=== PATIENT | male | born 1935 | race Caucasian/White ===

== ENCOUNTER 2016-05-16 16:22 | Inpatient (IN) | payer MEDICARE, BC ==
[2016-05-16] MEDS ORDERED: NS 1,000 ML IV ONE (17:06)
--- NOTE | 2016-05-16 17:26 | DIRPT ---
CLINICAL DATA: Slurred speech with hand numbness and leg weakness. EXAM: PORTABLE CHEST 1 VIEW COMPARISON: 04/06/2016 and 03/29/2016 and 12/02/2014 FINDINGS: Severe emphysema with marked lucency in the upper lungs. Coarse lung markings in the lower lungs appear chronic. No significant airspace disease. Heart and mediastinum are within normal limits and stable. Probable nipple shadow in the left lower chest. No acute bone abnormality. IMPRESSION: Severe emphysema without acute findings. Electronically Signed By: Dung Moore M.D. On: 05/16/2016 17:23
--- NOTE | 2016-05-16 17:38 | EDPRACDOC ---
- General Information Chief Complaint: Generalized Weakness Stated Complaint: WEAKNESS Time Seen by Provider: 05/16/16 17:01 Information Source: Patient, Family Mode Of Arrival: Car Home Medications: Home Medications Clopidogrel Bisulfate [Plavix] 75 mg PO DAILY 11/02/14 Ferrous Sulfate [Feosol] 325 mg PO BID 11/02/14 Gabapentin [Neurontin] 200 mg PO HS 11/02/14 Propranolol HCl [Propranolol HCl ER] 80 mg PO MOFR 11/02/14 Tiotropium [place] [Spiriva] 1 puff INH DAILY 11/02/14 Aspirin (OrangeEnteric Coated) [Ecotrin] 325 mg PO DAILY 11/26/14 Allergies/Adverse Reactions: Allergies Allergy/AdvReac Type Severity Reaction Status Date / Time loratadine [From Claritin] Allergy Unknown Verified 05/16/16 16:50 - History of Present Illness Onset: 2 DAYS Exact Onset of Symptoms: Unknown HPI: PT HAS BEEN C/O OF NUMBNESS TO BOTH HANDS AND WEAKNESS TO LEGS FOR THE PAST 2 DAYS. PT ALSO C/O DIARRHEA ALL DAY AND NIGHT YESTERDAY. PT'S DAUGHTER FEELS HIS SPEECH IS SLURRED. Symptoms Started: Reports: Gradually Symptoms Description: Constant Weakness: Bilateral: Generalized Symptoms: Reports: Numbness, Weak Associated signs and symptoms:: Reports: Diarrhea ED Past Medical History - Patient Medical History Neurological History: Reports: Cerebrovascular Accident Cardiac History: Reports: Coronary Artery Disease, Atrial Fibrillation, Heart Attack, Cardiac Catheterization Respiratory History: Reports: COPD Systemic History: Reports: Cancer (esophageal-resection 2005) Surgical History: Reports: Cardiac Catheterization, Other (ESOPHAGEAL RESECTION) - Social Medical History Smoking Status: Heavy tobacco smoker (5 or more cigarettes/day or daily pipe/ cigar) ETOH: None Substance Abuse: None Lives In: Home EDM Review of Systems - Review of Systems ROS Negative Except as Marked: Yes All systems reviewed and were negative except as marked Constitutional: Weakness Gastrointestinal: Diarrhea Neurological: Numbness, Speech Difficulty, Weakness - Physical Exam Constitutional: No apparent distress, Alert (Awake), Other (UNDERNOURISHED) Oriented to: Time, Person, Place Last recorded Vital Signs: Last Vital Signs Temp Pulse 60 05/16/16 16:43 Resp 22 05/16/16 16:43 BP 137/71 05/16/16 16:43 Pulse Ox Oxygen Pulse Oxygen Saturation O2 Device Oxygen Flow Rate Fraction of Inspired Oxygen ( FIO2) - HEENT Head: Normal ( normocephalic) Eye Exam: Normal (PERRL, EOMI, Sclera white) Oropharynx: Membranes Dry ENT EAC: Normal TMJ: Normal Nose: No Symptoms Reported (septum midline) Neck: Normal (FROM, trachea at midline) - Respiratory/Cardiovascular Respiratory: Normal - CTA (BBS clear to auscultation without adventitious sounds ) Cardiovascular: Normal (RRR without murmur, gallop or rub) - GI Auscultation: Normal (NABS) Palpation: Normal (Soft,No rebound or guarding, non distended) Tenderness: Non tender Trimble's Sign: Negative - Musculoskeletal Back: Normal (Non-Tender) Extremities: Normal (Normal tone, Pulses 2+ No cyanosis or edema, FROM) - Integumentary Skin: Normal, Warm, Dry Lymphatics: Normal (no adenopathy) - Neurologic Memory Impaired: Normal Motor Function: Normal (Normal tone, Pulses 2+ No cyanosis or edema, FROM) Cranial Nerve: Normal (CN II-X11 intact sensation, strength 5/5) Cerebellar: Normal Mood Description: Normal Perception: Normal - Re-evaluation Re-evaluation 1 Re-evaluation Time: 20:11 (IMPROVED) - Results 05/16/16 18:00 05/16/16 19:10 - EKG EKG #1 EKG Time: 17:18 -: Yes EKG interpreted by me Rate: bpm: 85 [place]: Normal Rhythm: NSR Block: RBBB Hypertrophy: None ST: Normal Comparison: 11/26/14 - Diagnostic Imaging Head Image interpreted by: Radiologist No acute intracranial abnormality. Old ischemic changes. Stable right cerebellopontine angle meningioma. Chest Image interpreted by: Radiologist Severe emphysema without acute findings. - Departure Yes I personally saw and evaluated the patient. Disposition: Admit IP To This Hospital Condition: Fair Final Diagnosis: Hyperkalemia, Nausea and vomiting Education/Counseling Given To: Patient Education/Counseling Given Regarding: Diagnosis, Treatment Decision to Admit Time: 20:12 Decision to admit date: 05/16/16 Decision to admit: from ED - Physician Consulted Hospitalist Provider Called: Alice Escobedo
--- NOTE | 2016-05-16 17:57 | DIRPT ---
CLINICAL DATA: 80-year-old with slurred speech and numbness in both hands. EXAM: CT HEAD WITHOUT CONTRAST TECHNIQUE: Contiguous axial images were obtained from the base of the skull through the vertex without contrast. COMPARISON: Brain MRI 10/24/2011 FINDINGS: Again noted is a small lesion at the right cerebellopontine angle. This structure measures 1.3 x 0.5 cm with peripheral calcifications. This has minimally changed from the prior MRI and compatible with a small meningioma. Stable encephalomalacia along the left white matter tracts and armstrong radiata compatible with prior infarct. Mild cerebral atrophy. Evidence for old lacune disease in the basal ganglia regions bilaterally. No evidence for acute hemorrhage, mass lesion, midline shift, hydrocephalus or new large infarct. Mild mucosal disease in the ethmoid air cells. No calvarial fracture. IMPRESSION: No acute intracranial abnormality. Old ischemic changes. Stable right cerebellopontine angle meningioma. Electronically Signed By: Dung Moore M.D. On: 05/16/2016 17:54
[2016-05-16 18:09] LABS: AUTOMATED EOSINOPHIL 3.1 % (0-5); AUTOMATED LYMPH 14.2 % (17-44); AUTOMATED MONOCYTE 3.4 % (3-10); AUTOMATED NEUTROPHIL 78.3 % (45-76); MPV 10.1 fL (7.4-10.4)
[2016-05-16 18:19] LABS: BLOOD UREA NITROGEN 30 MG/DL (9-20); CALCIUM 9.9 MG/DL (8.4-10.2); CALCULATED OSMOLALITY 273 MOs/Kg (270-290); CHLORIDE 111 mEq/L (98-107); GLUCOSE 69 MG/DL (70-99); SODIUM LEVEL 140 mEq/L (137-146); TOTAL PROTEIN 9.1 G/DL (6.3-8.2)
[2016-05-16 18:29] LABS: PARTIAL THROMB. TIME 32.2 SEC (22-35); PT-INR 1.1
[2016-05-16 19:52] LABS: LEUKOCYTES/URINE NEG (NEGATIVE); NITRITE/URINE NEG (NEGATIVE); URINE OCCULT BLOOD 1+ (NEG/TRACE); WBC/URINE 0-2 (0-2)
[2016-05-16] MEDS ORDERED: SODIUM POLYSTYRENE SULFONATE 15 GM BOTTLE PO ONE (20:07)
[2016-05-16] MEDS ORDERED: DEXTROSE 25 GM/50 ML PFS IV ONE (20:07)
[2016-05-16] MEDS ORDERED: SODIUM CHLORIDE 0.9% 3 ML FLUSH FLUSH PRN (20:26)
[2016-05-16] MEDS ORDERED: BENZONATATE 100 MG PERLES PO PRN (20:26)
[2016-05-16] MEDS ORDERED: PROMETHAZINE 25 MG/ML VIAL IV PRN (20:26)
[2016-05-16] MEDS ORDERED: TUSSIONEX 5 ML ORAL SYRINGE PO PRN (20:26)
[2016-05-16] MEDS ORDERED: REGULAR INSULIN 100 UNITS/ML - 3 ML VIAL IV ONE (20:30)
--- NOTE | 2016-05-16 20:36 | HISTPHYS ---
- Chief Complaint Weakness and slurred speech - History of Present Illness PT HAS BEEN C/O OF NUMBNESS TO BOTH HANDS AND WEAKNESS TO LEGS FOR THE PAST 2 DAYS. PT ALSO C/O DIARRHEA ALL DAY AND NIGHT YESTERDAY. PT'S DAUGHTER FEELS HIS SPEECH IS SLURRED. Symptoms Started: Reports: Gradually Symptoms Description: Constant Weakness: Bilateral: Generalized Symptoms: Reports: Numbness, Weak Associated signs and symptoms:: Reports: Diarrhea 80-year-old gentleman history of esophageal cancer many years smoke for many years quit 2 years ago presents tonight complaining of weakness numbness in his hands and slurred speech. He has had multiple episodes of diarrhea as well. Evaluation in the Emergency Department revealed a potassium in the high 8 range. Confirmed. Patient lives alone in cooks for himself he eats a diet that appears to be fairly high in potassium including and okra corn and tomatoes can that he eats at least once a day a banana at least once a day and potatoes every single day. He does not appear to have any renal cause for hyperkalemia. Patient will be admitted into the hospital for further evaluation and management of symptomatic hyperkalemia. - Medical History Cardiac History: Reports: Coronary Artery Disease, Atrial Fibrillation, Heart Attack, Cardiac Catheterization Respiratory History: Reports: COPD GI/ History: Denies: Renal Disease Systemic History: Reports: Cancer (esophageal-resection 2005) Neurological History: Reports: Cerebrovascular Accident - Surgical History Reports: Cardiac Catheterization, Other (ESOPHAGEAL RESECTION) - Medictions/Allergies Allergies loratadine [From Claritin] Allergy (Verified 05/16/16 16:50) Unknown Current Medication List: Reviewed Home Medications Clopidogrel Bisulfate [Plavix] 75 mg PO DAILY 11/02/14 Ferrous Sulfate [Feosol] 325 mg PO BID 11/02/14 Gabapentin [Neurontin] 200 mg PO HS 11/02/14 Propranolol HCl [Propranolol HCl ER] 80 mg PO MOFR 11/02/14 Tiotropium [place] [Spiriva] 1 puff INH DAILY 11/02/14 Aspirin (OrangeEnteric Coated) [Ecotrin] 325 mg PO DAILY 11/26/14 - Family History Reports: No Significant History - Social History Travel Outside of [place] in the Last 3 Months?: No Lives: Alone Smoking Status: Heavy tobacco smoker (5 or more cigarettes/day or daily pipe/ cigar) Social History: Denies: Alcohol Use, Substance Use Disorder - Review of Systems Constitutional: Fatigue, Weakness Eyes: No Symptoms Reported (No blurry vision, visual changes, eye pain, or eye redness.) Ears: No Symptoms Reported (No ear pain or discharge) Nose: No Symptoms Reported (No nasal discharge/congestion or bleeding) Mouth: No Symptoms Reported (No oropharyngeal lesions or erythema) Throat/Neck: No Symptoms Reported (No throat pain or swelling.No oropharyngeal lesions or erythema.) Respiratory: No Symptoms Reported (No cough, wheezing, or shortness of breath.) Cardiovascular: No Symptoms Reported (No chest pain or palpitations.) Gastrointestinal: Diarrhea Genitourinary: No Symptoms Reported (No dysuria or hematuria.) Neurological: Numbness (Bilateral hand), Weakness (Bilateral lower extremities) Musculoskeletal:: No Symptoms Reported Integumentary: No Symptoms Reported Allergic/Immunologic: No Symptoms Reported Hematologic: No Symptoms Reported (No chronic anemia, bleeding, or easy bruising.), Other (Lymphatics- no lymph node swelling or pain.) Endocrine: No Symptoms Reported (No thyroid issues, polyuria, or polydipsia.) Psychiatric: No Symptoms Reported (Fully oriented, with normal and appropriate affect.) - Physical Exam Vital Signs: Initial Vitals Pulse Rate 60 05/16/16 16:43 Respiratory Rate 22 05/16/16 16:43 Blood Pressure 137/71 05/16/16 16:43 Constitutional: No apparent distress. negative: Well nourished, Well appearing Oriented to: Time, Person, Place Exam: Chronically ill-appearing white male in no acute respiratory distress he is thin and emaciated. - HEENT Head: Normal (normocephalic, atraumatic.), Other (No cervical lymphadenopathy. No supraclavicular lymphadenopathy. Neck: No palpable mass, supple , trachea midline.) Eye: Normal (pupils equal, reactive to light, and round; EOMI, Sclera white) Oropharynx: Normal (Pharynx: Moist without exudate,Gums-no swelling, No oropharyngeal lesions or erythema, Mucous membranes are dry.) Nose: No Symptoms Reported (septum midline, Nares patent, without discharge or bleeding.) Respiratory: Normal - CTA (Clear to auscultation bilaterally. No wheezing, rales , rhonchi. Chest wall movements are symmetric. No use of accessory muscles to breathe.) Cardiovascular: Normal (RRR , Normal S1, S2. No murmurs, rubs, or gallops. PMI non-displaced. Carotids: no carotid bruits. No bradycardia or tachycardia. DP pulses 2+ bilaterally.) - GI Auscultation: Normal (normal active sounds) Palpation: Normal (Soft,non distended,nontender. No hepatosplenomegaly.) Tenderness: Non tender (No rebound or guarding) Trimble's Sign: Negative - Musculoskeletal Back: Normal (Non-Tender) Extremities: Normal (Normal tone, DP pulses 2+ bilaterally, No cyanosis or edema bilaterally, FROM bilaterally.) - Integumentary Skin: Normal (Clean, dry, and intact. No rashes. No lesions.) Lymphatics: Normal (No cervical lymphadenopathy. No supraclavicular lymphadenopathy.) - Neurologic Memory Impaired: Normal Motor Function: Normal (Motor 5/5 throughout.Normal tone, Pulses 2+ No cyanosis or edema, FROM) Cranial Nerve: Deficit (Speech is slurred) Cerebellar: Unable to Test Mood Description: Normal (Fully oriented. Normal and appropriate affect.), Calm Thought: Coherent Perception: Normal - Focused CV Perfusion Exam Vital Signs: Last Vital Signs Temp Pulse 95 05/16/16 20:30 Resp 18 05/16/16 20:30 BP 141/79 05/16/16 20:30 Pulse Ox 93 05/16/16 20:30 - Lab Results Laboratory Results - last 24 hr 05/16/16 05/16/16 05/16/16 18:00 18:00 18:00 WBC 10.7 RBC 5.25 Hgb 16.4 Hct 51.0 MCV 97 H MCH 31.2 MCHC 32.1 L RDW 14.2 Plt Count 149 MPV 10.1 Neut % (Auto) 78.3 H Lymph % (Auto) 14.2 L [place] % (Auto) 3.4 Eos % (Auto) 3.1 Baso % (Auto) 1.0 Absolute Neuts (auto) 8.35 H Absolute Lymphs (auto) 1.50 PT 10.9 INR 1.1 APTT 32.2 Sodium 140 Potassium 8.9 H* Chloride 111 H Carbon Dioxide 13 L Anion Gap 25 H BUN 30 H Creatinine 1.10 Estimated GFR (MDRD) > 60 Glucose 69 L Calculated Osmolality 273 Lactic Acid Calcium 9.9 Total Bilirubin 0.7 AST 42 ALT 35 Alkaline Phosphatase 145 Troponin I < 0.01 Total Protein 9.1 H Albumin 4.5 Urine Color Urine Clarity Urine pH Ur Specific [place] Urine Protein Urine Glucose (UA) Urine Ketones Urine Occult Blood Urine Nitrite Urine Bilirubin Urine Urobilinogen Ur Leukocyte Esterase Urine RBC Urine WBC Ur Epithelial Cells Hyaline Casts Urine Mucus 05/16/16 05/16/16 05/16/16 18:37 19:10 19:44 WBC RBC Hgb Hct MCV MCH MCHC RDW Plt Count MPV Neut % (Auto) Lymph % (Auto) [place] % (Auto) Eos % (Auto) Baso % (Auto) Absolute Neuts (auto) Absolute Lymphs (auto) PT INR APTT Sodium Potassium 8.9 H* Chloride Carbon Dioxide Anion Gap BUN Creatinine Estimated GFR (MDRD) Glucose Calculated Osmolality Lactic Acid 1.3 Calcium Total Bilirubin AST ALT Alkaline Phosphatase Troponin I Total Protein Albumin Urine Color Yellow Urine Clarity Clear Urine pH 6.0 Ur Specific [place] 1.025 Urine Protein Neg Urine Glucose (UA) Neg Urine Ketones 1+ H Urine Occult Blood 1+ H Urine Nitrite Neg Urine Bilirubin Neg Urine Urobilinogen <2.0 Ur Leukocyte Esterase Neg Urine RBC 5-10 H Urine WBC 0-2 Ur Epithelial Cells 2+ Hyaline Casts 0-2 Urine Mucus Occ - Diagnostic Findings EKG #1 EKG Time: 17:18 -: Yes EKG interpreted by me Rate: bpm: 85 [place]: Normal Rhythm: NSR Block: RBBB Hypertrophy: None ST: Normal Comparison: 11/26/14 EKG was personally reviewed by me and found to have peaked T-waves in inferior and all lateral leads as well as the leads as well. CT HEAD WITHOUT CONTRAST TECHNIQUE: Contiguous axial images were obtained from the base of the skull through the vertex without contrast. COMPARISON: Brain MRI 10/24/2011 FINDINGS: Again noted is a small lesion at the right cerebellopontine angle. This structure measures 1.3 x 0.5 cm with peripheral calcifications. This has minimally changed from the prior MRI and compatible with a small meningioma. Stable encephalomalacia along the left white matter tracts and armstrong radiata compatible with prior infarct. Mild cerebral atrophy. Evidence for old lacune disease in the basal ganglia regions bilaterally. No evidence for acute hemorrhage, mass lesion, midline shift, hydrocephalus or new large infarct. Mild mucosal disease in the ethmoid air cells. No calvarial fracture. IMPRESSION: No acute intracranial abnormality. Old ischemic changes. Stable right cerebellopontine angle meningioma. Electronically Signed By: Dung Moore M.D. On: 05/16/2016 17:54 PORTABLE CHEST 1 VIEW COMPARISON: 04/06/2016 and 03/29/2016 and 12/02/2014 FINDINGS: Severe emphysema with marked lucency in the upper lungs. Coarse lung markings in the lower lungs appear chronic. No significant airspace disease. Heart and mediastinum are within normal limits and stable. Probable nipple shadow in the left lower chest. No acute bone abnormality. IMPRESSION: Severe emphysema without acute findings. Electronically Signed By: Dung Moore M.D. On: 05/16/2016 17:23 - Assessment (1) Hyperkalemia E87.5 - HYPERKALEMIA Acute Present on Admission: Yes Patient with symptoms of weakness bilateral numbness and peaked T-waves on EKG. Patient with no renal evidence of dysfunction leading to hyperkalemia. He does however eat a lot of [place] tomato combinations as well as eating potatoes and bananas daily. I believe that his hyperkalemia is dietary in nature. We are going to continue Kayexalate every 6 hours he is to get 30 mg however his potassium is greater than 6.5 will get 60 mg. I have consulted Nutrition to discuss with the patient changing his diet and having less potassium in it. (2) Diarrhea R19.7 - DIARRHEA, UNSPECIFIED Acute Present on Admission: Yes Qualifiers: Diarrhea type: unspecified type Qualified Code(s): R19.7 - Diarrhea, unspecified Could be related to hyperkalemia however will check stools for C diff. (3) Numbness and tingling in both hands R20.2 - PARESTHESIA OF SKIN Acute Present on Admission: Yes Suspect related to hyperkalemia. Will hydrate patient. (4) Weakness of both lower extremities R29.898 - OTH SYMPTOMS AND SIGNS INVOLVING THE MUSCULOSKELETAL SYSTEM Acute Present on Admission: Yes Likely related to hyperkalemia. - Plan Admit, Kayexalate, hydration. Due to the presence of and/or the risk of deterioration, my attendance to this patient required critical care time, including assessment/reassessment, documentation, ordering and interpreting ancillary studies, discussion with staff and consultants,patient and family, and excludes time spent on separately billable procedures. In summary, this patient is acutely and critically ill. The patient requires treatment of vital organ failure and measures to prevent further life-threatening deterioration of condition. Case Care Discussed with: Patient, Family, Nursing Staff Total Time: 55 minutes Critical Care: Yes [place] Time (>50% in counseling/coordination): No
[2016-05-16] MEDS ORDERED: Albuterol/Ipratropium Neb 3 ML NEB NEB PRN (20:42)
[2016-05-16] MEDS ORDERED: ALBUTEROL 0.083% 3 ML NEB NEB ONE (20:43)
[2016-05-16] MEDS ORDERED: ALBUTEROL 0.083% 3 ML NEB NEB PRN (20:44)
[2016-05-16] MEDS: NS 1,000 ML IV SCH (20:51)
[2016-05-16] MEDS ORDERED: SODIUM POLYSTYRENE SULFONATE 15 GM BOTTLE PO SCH (21:00)
[2016-05-16] MEDS ORDERED: SODIUM BICARBONATE 50 ML IV ONE (21:00)
[2016-05-16] MEDS: SODIUM POLYSTYRENE SULFONATE 15 GM BOTTLE PO SCH (21:17)
[2016-05-16] MEDS: ENOXAPARIN 30 MG/0.3 ML PFS SQ SCH (21:18)
[2016-05-16] MEDS: GABAPENTIN 100 MG CAP PO SCH (21:18)
[2016-05-16] MEDS ORDERED: Vaccine Screening Complete SCH (23:00)
[2016-05-17] MEDS: Albuterol/Ipratropium Neb 3 ML NEB NEB SCH ×4 (01:22→19:19)
[2016-05-17] MEDS ORDERED: ALBUTEROL 0.083% 3 ML NEB NEB SCH (02:00)
[2016-05-17] MEDS ORDERED: SODIUM POLYSTYRENE SULFONATE 15 GM BOTTLE PO SCH (02:00)
[2016-05-17] MEDS: SODIUM POLYSTYRENE SULFONATE 15 GM BOTTLE PO SCH ×4 (02:29→17:22)
[2016-05-17] MEDS: SODIUM CHLORIDE 0.9% 3 ML FLUSH FLUSH SCH ×2 (04:59→17:19)
[2016-05-17 05:11] LABS: AUTOMATED BASOPHIL 0.5 % (0-2); AUTOMATED EOSINOPHIL 0.4 % (0-5); AUTOMATED LYMPH 12.2 % (17-44); AUTOMATED MONOCYTE 5.6 % (3-10); AUTOMATED NEUTROPHIL 81.3 % (45-76); MPV 10.2 fL (7.4-10.4)
[2016-05-17 05:14] LABS: BLOOD UREA NITROGEN 32 MG/DL (9-20); CALC CORRECTED 9.3 MG/DL (8.4-10.2); CALCIUM 8.5 MG/DL (8.4-10.2); CALCULATED OSMOLALITY 291 MOs/Kg (270-290); CHLORIDE 118 mEq/L (98-107); GLUCOSE 94 MG/DL (70-99); SODIUM LEVEL 148 mEq/L (137-146); TOTAL PROTEIN 6.6 G/DL (6.3-8.2)
[2016-05-17] MEDS: NS 1,000 ML IV SCH ×2 (05:47→13:20)
[2016-05-17] MEDS ORDERED: SODIUM POLYSTYRENE SULFONATE 15 GM BOTTLE PO PRN (06:00)
[2016-05-17] MEDS ORDERED: SODIUM POLYSTYRENE SULFONATE 15 GM BOTTLE PO ONE (06:00)
--- NOTE | 2016-05-17 08:51 | CAPUEKG ---
[place], [place] Test Date: 2016-05-17 Pat Name: REJI LYNN Department: Room: 429 Gender: Male Internal Consultant: : Requested By: Order Number: Reading MD: Everette Villegas Measurements Intervals [place] Rate: 80 P: 85 [place]: QRS: 240 QRSD: 112 T: -15 QT: 396 QTc: 456 Interpretive Statements Normal sinus rhythm Indeterminate axis Pulmonary disease pattern Right bundle branch block Septal infarct, age undetermined No change from prior tracing. Abnormal ECG Electronically Signed On 05-17-16 08:50:47 EST by Everette Villegas <[email or web address] [id number]
[2016-05-17] MEDS ORDERED: Non-Formulary Medication ITEM (Tiotropium Bromide [Spiriva] 1 PUFF) INH SCH (09:00)
[2016-05-17] MEDS: CLOPIDOGREL 75 MG TAB PO SCH (10:07)
[2016-05-17] MEDS: Aspirin (Orange Enteric Coated) 325 mg tab PO SCH (10:07)
--- NOTE | 2016-05-17 15:08 | GENMEDPROG ---
Chief Complaint: WEIGHT LOSS, HYPERKALEMIA, DIARRHEA, HX ESOPHAGEAL CANCER Currently: Reports: Diarrhea - Physical Examination Vital Signs and I&O: Last Vital Signs Temp 97.6 F 05/17/16 12:44 Pulse 77 05/17/16 13:56 Resp 19 05/17/16 12:44 BP 99/46 L 05/17/16 12:44 Pulse Ox 90 L 05/17/16 12:44 Oxygen Pulse Oxygen Saturation 90 O2 Device Room Air Oxygen Flow Rate Fraction of Inspired Oxygen ( FIO2) Intake & Output 05/14/16 05/15/16 05/16/16 05/17/16 23:59 23:59 23:59 23:59 Intake Total 1250 1819 Output Total 1300 Balance 1250 519 Patient's weight 36.769 kg 37.058 kg General: Alert, Cooperative, Mild distress, Weakness, Fatigue HEENT: Normal, PERRLA, EOMI, Mucous membr. moist/pink Neck: Full range of motion, Normal Trachea alignment, Normal inspection, No Masses palpable Lymphatics: Normal (No cervical lymphadenopathy. No supraclavicular lymphadenopathy.) Respiratory: Normal - CTA (Clear to auscultation bilaterally. No wheezing, rales , rhonchi. Chest wall movements are symmetric. No use of accessory muscles to breathe.) Cardiovascular: Regular rate and rhythm, Normal S1, Normal S2 GI: Normal bowel sounds, Soft, Non tender, No masses Extremities/Musculoskeletal: Normal pulses, Edema, DJD, FROM Skin: Warm,Dry and Intact, No rashes, No significant lesion Neurological: Normal speech, Strength at 5/5 X4 ext, Normal tone, Cranial nerves 3-12 NL Psych/Mental Status: Appropriate, Normal Affect, Cooperative, Confused, Disoriented Lab/DI/Studies Reviewed: Laboratory Tests 05/16/16 05/16/16 05/17/16 21:06 23:55 04:25 WBC Hgb Hct Plt Count Neut % (Auto) Lymph % (Auto) [place] % (Auto) Eos % (Auto) Baso % (Auto) Sodium Potassium 6.7 H* Chloride Carbon Dioxide Anion Gap BUN Creatinine Estimated GFR (MDRD) Glucose Calculated Osmolality Corrected Calcium Total Bilirubin AST ALT Alkaline Phosphatase Troponin I < 0.01 0.01 Total Protein Albumin 05/17/16 05/17/16 05/17/16 04:25 04:25 04:25 WBC 10.6 Hgb 13.8 L D Hct 42.6 Plt Count 126 L Neut % (Auto) 81.3 H Lymph % (Auto) 12.2 L [place] % (Auto) 5.6 Eos % (Auto) 0.4 Baso % (Auto) 0.5 Sodium 148 H D Potassium 6.7 H* Chloride 118 H Carbon Dioxide 17 L Anion Gap 20 H BUN 32 H Creatinine 1.00 Estimated GFR (MDRD) > 60 Glucose 94 Calculated Osmolality 291 H Corrected Calcium 9.3 Total Bilirubin 0.5 AST 31 ALT 36 Alkaline Phosphatase 98 Troponin I < 0.01 Total Protein 6.6 Albumin 3.2 L 05/17/16 05/17/16 10:35 16:35 WBC Hgb Hct Plt Count Neut % (Auto) Lymph % (Auto) [place] % (Auto) Eos % (Auto) Baso % (Auto) Sodium Potassium 5.7 H 4.6 Chloride Carbon Dioxide Anion Gap BUN Creatinine Estimated GFR (MDRD) Glucose Calculated Osmolality Corrected Calcium Total Bilirubin AST ALT Alkaline Phosphatase Troponin I Total Protein Albumin - Assessment (1) Diarrhea Acute R19.7 - DIARRHEA, UNSPECIFIED Qualifiers: Diarrhea type: unspecified type Qualified Code(s): R19.7 - Diarrhea, unspecified Comment/Plan: Could be related to hyperkalemia however will check stools for C diff. (2) Hyperkalemia Acute E87.5 - HYPERKALEMIA Comment/Plan: Patient with symptoms of weakness bilateral numbness and peaked T-waves on EKG. Patient with no renal evidence of dysfunction leading to hyperkalemia. He does however eat a lot of canned tomato combinations as well as eating potatoes and bananas daily. It may be that his hyperkalemia is dietary in nature. We are going to continue Kayexalate every 6 hours he is to get 30 mg. If his potassium is greater than 6.5 will get 60 mg. I have consulted Nutrition to discuss with the patient changing his diet and having less potassium in it. (3) Numbness and tingling in both hands Acute R20.2 - PARESTHESIA OF SKIN Comment/Plan: Consider CT or MRI of head. Suspect related to hyperkalemia. Will hydrate patient. (4) Weakness of both lower extremities Acute R29.898 - OTH SYMPTOMS AND SIGNS INVOLVING THE MUSCULOSKELETAL SYSTEM Comment/Plan: Likely related to hyperkalemia. Case Care Discussed with: Patient, Nursing Staff Education/Counseling Given To: Patient Education/Counseling Given Regarding: Diagnosis, Treatment, Prognosis Total Time: 30 min
[2016-05-17] MEDS: ENOXAPARIN 30 MG/0.3 ML PFS SQ SCH (17:19)
--- NOTE | 2016-05-17 17:33 | PCM.CONSGI ---
Consult Date: 05/17/16 Consult Requesting Physician: Iris Gillespie Consult Reason: Diarrhea - History of Present Illness 80-year-old very pleasant white male who is very hard of hearing admitted with hyperkalemia, acute renal failure. He has been treated with Kayexalate. He has been having diarrhea prior to admission as well. His diarrhea has gotten somewhat worse ever since he received Kayexalate. He is a very poor historian partly because of slurred speech and hard of hearing. He has been followed by Dr. Pedraza, tu[facility]ing cre[place] in [place]. He had several endoscopies and colonoscopies performed. 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 He underwent distal esophageal resection with gastric pull-through. Of note that we have no records. He also recently had a colonoscopy performed which was unremarkable according to the patient. Patient has been closely followed by him. - Past Medical History Cardiac History: Reports: Coronary Artery Disease Respiratory History: Reports: COPD GI/ History: Denies: Renal Disease Psychological History: Reports: Anxiety, Depression. Denies: Alcoholism, Substance Use Disorder - Surgical History Past Surgical History: Reports: Coronary Stent (5 stents), T&A, Other (Distal esophageal resection with gastric pull-through) - Family History Family History: Reports: Cancer (brother), Hypertension (sister), Stroke (dad). Denies: Diabetes, Cardiac Disorders, Renal Disease, Seizures - Allergies Allergies loratadine [From Claritin] Allergy (Verified 05/16/16 16:50) Unknown - Medications Home Medications Clopidogrel Bisulfate [Plavix] 75 mg PO DAILY 11/02/14 Ferrous Sulfate [Feosol] 325 mg PO BID 11/02/14 Gabapentin [Neurontin] 200 mg PO HS 11/02/14 Propranolol HCl [Propranolol HCl ER] 80 mg PO MOFR 11/02/14 Tiotropium Sharon [Spiriva] 1 puff INH DAILY 11/02/14 Aspirin (OrangeEnteric Coated) [Ecotrin] 325 mg PO DAILY 11/26/14 - Social History Lives: Alone Smoking Status: Former smoker Social History: Denies: Alcohol Use, Substance Use Disorder - Review of Systems Constitutional: Weight loss (Recent), Other (No night sweats.). negative: Chills, Fever Mouth: negative: Pain Cardiovascular: negative: Chest Pain, Orthopnea, PND Gastrointestinal: Other (No jaundice, dark urine or pale stools.) Genitourinary: Other (Denies polyuria.). negative: Dysuria Neurological: Other (Denies loss of consciousness.). negative: Seizure Allergic/Immunologic: negative: Hives, Itching Hematologic: negative: Easy Bruising - Exam Vital Signs: Temperature: 97.6 F (05/17/16 15:34) HR: 82 (05/17/16 17:14) RR: 16 (05/17/16 16:13) BP: 125/53 (05/17/16 15:34) Pulse Ox: 96 (05/17/16 16:13) General: Alert, Oriented x3, Cooperative, No acute distress HEENT: Normal, Other (No Jaundice). negative: Pallor Respiratory: Diminished, Other (Barrel shaped chest) Cardiovascular: Normal S1, Normal S2, Other (No S3 or S4.). negative: No murmurs Gastrointestinal: Soft, Bowel Sounds (normal), Other (No ascites.). negative: Tender, Guarding, Rigid, Hepatosplenomegaly Extremities: Normal pulses. negative: Swelling, Edema Skin: Warm,Dry and Intact Neurological: Normal speech, Other (No focal neurologic deficits.) Psych/Mental Status: Normal Affect, Cooperative - Labs Result Diagrams: 05/17/16 04:25 05/17/16 16:35 Laboratory Tests 05/16/16 05/16/16 05/16/16 18:00 18:00 18:00 WBC 10.7 Hgb 16.4 MCV 97 H Plt Count 149 PT 10.9 INR 1.1 APTT 32.2 Potassium 8.9 H* Chloride 111 H Carbon Dioxide 13 L Anion Gap 25 H BUN 30 H Creatinine 1.10 Glucose 69 L Calcium Corrected Calcium Total Bilirubin AST ALT Alkaline Phosphatase Troponin I < 0.01 Total Protein 9.1 H Albumin 4.5 05/16/16 05/17/16 05/17/16 19:10 04:25 04:25 WBC 10.6 Hgb 13.8 L D MCV 96 H Plt Count 126 L PT INR APTT Potassium 8.9 H* 6.7 H* Chloride Carbon Dioxide Anion Gap BUN 32 H Creatinine 1.00 Glucose Calcium 8.5 Corrected Calcium 9.3 Total Bilirubin 0.5 AST 31 ALT 36 Alkaline Phosphatase 98 Troponin I Total Protein 6.6 Albumin 3.2 L - Assessment and Plan (1) History of esophageal cancer Acute Z85.01 - PERSONAL HISTORY OF MALIGNANT NEOPLASM OF ESOPHAGUS Comment: Status post distal esophageal resection with gastric pull-through (per history) (2) Diarrhea Acute R19.7 - DIARRHEA, UNSPECIFIED unspecified type R19.7 - Diarrhea, unspecified Comment: Appears to have been exacerbated by Kayexalate which is expected. Need to rule out any infectious causes. He had a negative colonoscopy recently (3) Hyperkalemia Acute E87.5 - HYPERKALEMIA (4) Numbness and tingling in both hands Acute R20.2 - PARESTHESIA OF SKIN Recommendations: 1. check stool for C diff. WBCs and cultures 2. Continue to monitor electrolytes specially potassium. 3. He is not a candidate for repeat EGD or colonoscopy at the present time. Besides, he recently had performed in [place]. 4. He is closely being followed by Dr. Pedraza and had extensive GI workup performed. He apparently also had a CT scan of the abdomen and pelvis. We do not have any records at the present time. I would recommend him to follow up with Dr. Pedraza as an outpatient. 5. If the stool studies are negative, can give him a trial of Lomotil or Imodium.. We do expect diarrhea to get worse with Kayexalate.
[2016-05-17] MEDS: GABAPENTIN 100 MG CAP PO SCH (20:33)
[2016-05-17] MEDS: ACETAMINOPHEN 325 MG/TAB TABLET PO PRN (21:05)
[2016-05-18] MEDS: Albuterol/Ipratropium Neb 3 ML NEB NEB SCH ×4 (01:52→19:34)
[2016-05-18] MEDS: SODIUM CHLORIDE 0.9% 3 ML FLUSH FLUSH SCH ×2 (04:19→17:44)
[2016-05-18] MEDS: NS 1,000 ML IV SCH ×3 (07:07→17:46)
[2016-05-18] MEDS: CLOPIDOGREL 75 MG TAB PO SCH (09:25)
[2016-05-18] MEDS: METRONIDAZOLE 500 MG TAB PO SCH ×3 (09:25→17:44)
[2016-05-18] MEDS: Aspirin (Orange Enteric Coated) 325 mg tab PO SCH (09:25)
--- NOTE | 2016-05-18 15:27 | PCM.GIPROG ---
Progress Note (GI) Chief Complaint: No new complaints. Diarrhea is much better than yesterday.. Stool studies came back as positive for C diff, he has been treated with Flagyl. He has chronic lower abdominal pain. Has chronic symptoms. Nothing new. No fever chills or night sweats. Denies having any other problems. - Physical Exam Vital Signs: Temperature: 97.6 F (05/18/16 11:57) HR: 87 (05/18/16 15:02) RR: 18 (05/18/16 11:57) BP: 129/61 (05/18/16 11:57) Pulse Ox: 97 (05/18/16 11:57) General: Alert, Oriented x3, Cooperative, No acute distress HEENT: Normal, Other (No Jaundice). negative: Pallor Cardiovascular: Normal S1, Normal S2, Other (No S3 or S4.). negative: No murmurs Gastrointestinal: Soft, Bowel Sounds (Normal), Other (No ascites.). negative: Tender, Hepatosplenomegaly Extremities: Normal pulses. negative: Swelling, Edema Skin: Warm,Dry and Intact Neurological: Normal speech, Other (No focal neurologic deficits.) Psych/Mental Status: Normal Affect, Cooperative Result Diagrams: 05/17/16 04:25 05/18/16 04:20 Additional Lab/DI Findings: Laboratory Tests 05/17/16 04:25 WBC 10.6 Hgb 13.8 L D Hct 42.6 MCV 96 H MCH 31.1 MCHC 32.5 L RDW 13.9 Plt Count 126 L - Impression and Plan (1) C. difficile colitis Acute A04.7 - ENTEROCOLITIS DUE TO CLOSTRIDIUM DIFFICILE (2) History of esophageal cancer Acute Z85.01 - PERSONAL HISTORY OF MALIGNANT NEOPLASM OF ESOPHAGUS (3) Diarrhea Acute R19.7 - DIARRHEA, UNSPECIFIED Present on Admission: Yes unspecified type R19.7 - Diarrhea, unspecified Comment: Could be related to hyperkalemia however will check stools for C diff. (4) Hyperkalemia Acute E87.5 - HYPERKALEMIA Present on Admission: Yes Comment: Patient with symptoms of weakness bilateral numbness and peaked T- waves on EKG. Patient with no renal evidence of dysfunction leading to hyperkalemia. He does however eat a lot of canned tomato combinations as well as eating potatoes and bananas daily. It may be that his hyperkalemia is dietary in nature. We are going to continue Kayexalate every 6 hours he is to get 30 mg. If his potassium is greater than 6.5 will get 60 mg. I have consulted Nutrition to discuss with the patient changing his diet and having less potassium in it. (5) Numbness and tingling in both hands Acute R20.2 - PARESTHESIA OF SKIN Present on Admission: Yes Comment: Consider CT or MRI of head. Suspect related to hyperkalemia. Will hydrate patient. Plan: 1. clinically doing quite well on Flagyl. Continue Flagyl 500 mg p.o. t.i.d. for 10 days 2. Avoid other antibiotics 3. Can start probiotics 4. Contact isolation until diarrhea completely resolves 5. Please call if with any other questions. He will follow up with Dr. Pedraza in [place].
--- NOTE | 2016-05-18 16:39 | GENMEDPROG ---
Chief Complaint: Hyperkalemia weight loss chronic diarrhea Subjective Note: Is on antibiotics for C diff. Diarrhea is less. Still not hungry. Current Medication List: Reviewed Currently: Reports: Diarrhea (Improved). Denies: Cough, Wheezing, COELLO, SOB, Ambulating DVT Prophylaxis: Yes - Physical Examination Vital Signs and I&O: Last Vital Signs Temp 98.0 F 05/18/16 15:40 Pulse 90 05/18/16 15:40 Resp 18 05/18/16 15:40 BP 122/55 L 05/18/16 15:40 Pulse Ox 97 05/18/16 15:40 Oxygen Pulse Oxygen Saturation 97 O2 Device Nasal Cannula Oxygen Flow Rate 2 Fraction of Inspired Oxygen ( FIO2) Intake & Output 05/15/16 05/16/16 05/17/16 05/18/16 23:59 23:59 23:59 23:59 Intake Total 1250 3265 3197 Output Total 1900 1300 Balance 1250 1365 1897 Patient's weight 36.769 kg 37.058 kg 39.372 kg General: Alert, Oriented x3, Cooperative, No acute distress, Other (Very hard of hearing) HEENT: Mucous membr. moist/pink Neck: Full range of motion, Normal inspection Lymphatics: negative: Adenopathy Respiratory: Diminished (But clear) Cardiovascular: Regular rate and rhythm. negative: LE Edema GI: Normal bowel sounds, Soft, Non tender, Other (Non distended) Extremities/Musculoskeletal: Normal pulses. negative: Swelling, Edema Skin: Warm,Dry and Intact Neurological: Normal speech Psych/Mental Status: Other (Has very unrealistic expectations about his ability to live alone.) Lab/DI/Studies Reviewed: 05/17/16 04:25 05/18/16 04:20 - Assessment (1) Diarrhea Acute R19.7 - DIARRHEA, UNSPECIFIED Qualifiers: Diarrhea type: unspecified type Qualified Code(s): R19.7 - Diarrhea, unspecified Comment/Plan: C diff has been confirmed and diarrhea is improving on treatment (2) C. difficile colitis Acute A04.7 - ENTEROCOLITIS DUE TO CLOSTRIDIUM DIFFICILE Comment/Plan: Is on Flagyl and diarrhea is improving (3) Hyperkalemia Acute E87.5 - HYPERKALEMIA Comment/Plan: Potassium is now low. Will stop Kayexalate. Will replace his potassium and recheck in the morning. (4) Numbness and tingling in both hands Acute R20.2 - PARESTHESIA OF SKIN Comment/Plan: Improved with replacement (5) Weakness of both lower extremities Acute R29.898 - OTH SYMPTOMS AND SIGNS INVOLVING THE MUSCULOSKELETAL SYSTEM Comment/Plan: Likely related to hyperkalemia. - Plan Continue Flagyl. Appreciate the help of Dr. Saldana. Since his potassium is now low DC Kayexalate and add potassium x1 recheck in a.m.. Case Care Discussed with: Patient, Nursing Staff, Resource Management Education/Counseling Given To: Patient Education/Counseling Given Regarding: Diagnosis, Treatment Total Time: 35 minutes Critical Care: No Code: 21053 (12+)
[2016-05-18] MEDS ORDERED: KCL 20 mEq/100 ml Premix Run 20 MEQ/100 ML RTU IV ONE (17:00)
[2016-05-18] MEDS: ENOXAPARIN 30 MG/0.3 ML PFS SQ SCH (17:43)
[2016-05-18] MEDS: GABAPENTIN 100 MG CAP PO SCH (22:44)
[2016-05-19] MEDS: Albuterol/Ipratropium Neb 3 ML NEB NEB SCH ×4 (01:19→19:11)
[2016-05-19] MEDS: NS 1,000 ML IV SCH ×2 (04:29→16:05)
[2016-05-19] MEDS: SODIUM CHLORIDE 0.9% 3 ML FLUSH FLUSH SCH ×2 (04:29→14:51)
[2016-05-19 04:49] LABS: BLOOD UREA NITROGEN 8 MG/DL (9-20); CALCIUM 7.5 MG/DL (8.4-10.2); CALCULATED OSMOLALITY 271 MOs/Kg (270-290); CHLORIDE 115 mEq/L (98-107); GLUCOSE 71 MG/DL (70-99); SODIUM LEVEL 143 mEq/L (137-146)
[2016-05-19] MEDS: METRONIDAZOLE 500 MG TAB PO SCH ×3 (09:16→16:04)
[2016-05-19] MEDS: CLOPIDOGREL 75 MG TAB PO SCH (09:16)
[2016-05-19] MEDS: Aspirin (Orange Enteric Coated) 325 mg tab PO SCH (09:16)
--- NOTE | 2016-05-19 12:54 | GENMEDPROG ---
Subjective Note: Patient states his diarrhea is improved. His appetite is still poor. He states he ambulated in the diallo. Is tolerating treatment for C diff well. Only new complaint is itching around his eyes. Current Medication List: Reviewed Currently: Reports: Diarrhea (Improved Improved), Other (Itching around his eyes ). Denies: Cough, Wheezing, COELLO, SOB, Ambulating DVT Prophylaxis: Yes - Physical Examination Vital Signs and I&O: Last Vital Signs Temp 97.9 F 05/19/16 11:53 Pulse 72 05/19/16 11:57 Resp 18 05/19/16 11:53 BP 129/60 05/19/16 11:53 Pulse Ox 98 05/19/16 11:53 Oxygen Pulse Oxygen Saturation 98 O2 Device Nasal Cannula Oxygen Flow Rate 2 Fraction of Inspired Oxygen ( FIO2) Intake & Output 05/16/16 05/17/16 05/18/16 05/19/16 23:59 23:59 23:59 23:59 Intake Total 1250 3265 3497 1004 Output Total 1900 1825 1125 Balance 1250 1365 1672 -121 Patient's weight 36.769 kg 37.058 kg 39.372 kg 41.232 kg General: Alert, Oriented x3, Cooperative, No acute distress, Other (Very hard of hearing) HEENT: Mucous membr. moist/pink, Other (Sclera are anicteric, conjunctiva are not injected. Skin around his eye it looks irritated.) Neck: Full range of motion, Normal inspection Lymphatics: negative: Adenopathy Respiratory: Diminished (But clear) Cardiovascular: Regular rate and rhythm. negative: LE Edema GI: Normal bowel sounds, Soft, Non tender, Other (Non distended) Extremities/Musculoskeletal: Normal pulses. negative: Swelling, Edema Skin: Warm,Dry and Intact Neurological: Normal speech Psych/Mental Status: Appropriate, Other (Has very unrealistic expectations about his ability to live alone.) Lab/DI/Studies Reviewed: Intake & Output 05/16/16 05/17/16 05/18/16 05/19/16 23:59 23:59 23:59 23:59 Intake Total 1250 3265 3497 1004 Output Total 1900 1825 1125 Balance 1250 1365 1672 -121 Patient's weight 36.769 kg 37.058 kg 39.372 kg 41.232 kg 05/17/16 04:25 05/19/16 03:00 - Assessment (1) Diarrhea Acute R19.7 - DIARRHEA, UNSPECIFIED Qualifiers: Diarrhea type: unspecified type Qualified Code(s): R19.7 - Diarrhea, unspecified Comment/Plan: C diff has been confirmed and diarrhea is improving on treatment (2) C. difficile colitis Acute A04.7 - ENTEROCOLITIS DUE TO CLOSTRIDIUM DIFFICILE Comment/Plan: Is on Flagyl and diarrhea is improving (3) Hyperkalemia Acute E87.5 - HYPERKALEMIA Comment/Plan: Admitted with very high potassium. After Kayexalate therapy it is now low. Will add some low-dose potassium and follow. (4) Numbness and tingling in both hands Acute R20.2 - PARESTHESIA OF SKIN Comment/Plan: Improved with replacement (5) Weakness of both lower extremities Acute R29.898 - OTH SYMPTOMS AND SIGNS INVOLVING THE MUSCULOSKELETAL SYSTEM Comment/Plan: Likely related to hyperkalemia. (6) Cachexia Acute R64 - CACHEXIA Comment/Plan: The patient states he eats well at home. His diet does sound fairly limited. He has a low BMI. Have changed his diet to regular to allow him to eat what he would like. He does live alone. Resource management spoke to the family yesterday on the daughter checks in on him but wanted him to return back home. Case Care Discussed with: Patient, Nursing Staff Total Time: 30 minutes Code: 32485 (12+)
[2016-05-19] MEDS: ARTIFICIAL TEARS OPH SOLN 15 ML OU PRN ×2 (13:53→18:10)
[2016-05-19] MEDS: TRIAMCINOLONE 0.5% CREAM 15 GM TUBE TOP SCH ×2 (13:53→21:00)
[2016-05-19] MEDS ORDERED: TRIAMCINOLONE 0.5% CREAM 15 GM TUBE TOP SCH (14:00)
[2016-05-19] MEDS: ENOXAPARIN 30 MG/0.3 ML PFS SQ SCH (16:04)
[2016-05-19] MEDS: GABAPENTIN 100 MG CAP PO SCH (21:00)
[2016-05-20] MEDS: Albuterol/Ipratropium Neb 3 ML NEB NEB SCH ×4 (02:24→19:29)
[2016-05-20] MEDS: SODIUM CHLORIDE 0.9% 3 ML FLUSH FLUSH SCH ×2 (06:08→15:59)
[2016-05-20] MEDS: TRIAMCINOLONE 0.5% CREAM 15 GM TUBE TOP SCH ×3 (06:09→19:34)
[2016-05-20] MEDS: NS 1,000 ML IV SCH ×2 (06:11→13:00)
--- NOTE | 2016-05-20 09:19 | GENMEDPROG ---
Subjective Note: Diarrhea has improved. No stool today and patient concerned. Eats very little. Has a cough today. States he lives aone. Has daughter who sees him weekly. Current Medication List: Reviewed Currently: Reports: Diarrhea (Improved Improved), Maxwell PT/OT, Other (Itching around his eyes improved.). Denies: Cough, Wheezing, COELLO, SOB, Ambulating DVT Prophylaxis: Yes - Physical Examination Vital Signs and I&O: Last Vital Signs Temp 97.6 F 05/20/16 07:56 Pulse 70 05/20/16 07:56 Resp 18 05/20/16 07:56 BP 134/64 05/20/16 07:56 Pulse Ox 95 05/20/16 07:56 Oxygen Pulse Oxygen Saturation 95 O2 Device Room Air Oxygen Flow Rate 1 Fraction of Inspired Oxygen ( FIO2) Intake & Output 05/17/16 05/18/16 05/19/16 05/20/16 23:59 23:59 23:59 23:59 Intake Total 3265 3497 2744 1122 Output Total 1900 1825 2925 1900 Balance 1365 4865 -550 -244 Patient's weight 37.058 kg 39.372 kg 41.232 kg 40.869 kg General: Alert, Cooperative, No acute distress, Other (Very hard of hearing) HEENT: Mucous membr. moist/pink, Other (Sclera are anicteric, conjunctiva are not injected. Skin around his eye it looks irritated.) Neck: Full range of motion, Normal inspection Lymphatics: negative: Adenopathy Respiratory: Diminished (But clear), Other (wet cough heard. Pt produced clear phlegm.) Cardiovascular: Regular rate and rhythm. negative: LE Edema GI: Normal bowel sounds, Soft, Non tender, Other (Non distended) Extremities/Musculoskeletal: Normal pulses. negative: Swelling, Edema Skin: Warm,Dry and Intact Neurological: Normal speech Psych/Mental Status: Appropriate, Other (Has very unrealistic expectations about his ability to live alone.) - Assessment (1) Diarrhea Acute R19.7 - DIARRHEA, UNSPECIFIED Qualifiers: Diarrhea type: unspecified type Qualified Code(s): R19.7 - Diarrhea, unspecified Comment/Plan: No diarrhea now. Will complete flagyl course. (2) C. difficile colitis Acute A04.7 - ENTEROCOLITIS DUE TO CLOSTRIDIUM DIFFICILE Comment/Plan: Is on Flagyl and diarrhea is resolved. (3) Hyperkalemia Acute E87.5 - HYPERKALEMIA Comment/Plan: Admitted with very high potassium. After Kayexalate therapy it is now low. Will add some low-dose potassium and follow. (4) Numbness and tingling in both hands Acute R20.2 - PARESTHESIA OF SKIN Comment/Plan: Improved with replacement of potassium. (5) Weakness of both lower extremities Acute R29.898 - OTH SYMPTOMS AND SIGNS INVOLVING THE MUSCULOSKELETAL SYSTEM Comment/Plan: Likely related to hyperkalemia. Improving with PT. (6) Cachexia Acute R64 - CACHEXIA Comment/Plan: The patient states he eats well at home. His diet does sound fairly limited. He has a low BMI. Have changed his diet to regular to allow him to eat what he would like. He does live alone. Resource management spoke to the family yesterday on the daughter checks in on him but wanted him to return back home. Case Care Discussed with: Patient, Nursing Staff, Physical Therapy Education/Counseling Given To: Patient Education/Counseling Given Regarding: Diagnosis, Treatment, Prognosis Critical Care: No Couseling Time (>50% in counseling/coordination): No Code: 33692 (12+)
[2016-05-20] MEDS: CLOPIDOGREL 75 MG TAB PO SCH (10:05)
[2016-05-20] MEDS: METRONIDAZOLE 500 MG TAB PO SCH ×3 (10:06→16:03)
[2016-05-20] MEDS: Aspirin (Orange Enteric Coated) 325 mg tab PO SCH (10:06)
[2016-05-20] MEDS: POTASSIUM CHLORIDE 20 MEQ TAB PO SCH (10:06)
[2016-05-20] MEDS: ENOXAPARIN 30 MG/0.3 ML PFS SQ SCH (16:02)
[2016-05-20] MEDS: GABAPENTIN 100 MG CAP PO SCH (19:37)
[2016-05-21] MEDS: Albuterol/Ipratropium Neb 3 ML NEB NEB SCH ×4 (01:51→19:11)
[2016-05-21] MEDS: TRIAMCINOLONE 0.5% CREAM 15 GM TUBE TOP SCH ×3 (05:36→20:16)
[2016-05-21] MEDS: NS 1,000 ML IV SCH (05:36)
[2016-05-21] MEDS: SODIUM CHLORIDE 0.9% 3 ML FLUSH FLUSH SCH ×2 (05:36→16:11)
[2016-05-21] MEDS: Aspirin (Orange Enteric Coated) 325 mg tab PO SCH (09:32)
[2016-05-21] MEDS: CLOPIDOGREL 75 MG TAB PO SCH (09:33)
[2016-05-21] MEDS: POTASSIUM CHLORIDE 20 MEQ TAB PO SCH (09:33)
[2016-05-21] MEDS: METRONIDAZOLE 500 MG TAB PO SCH ×3 (09:33→16:11)
[2016-05-21] MEDS: ENOXAPARIN 30 MG/0.3 ML PFS SQ SCH (16:11)
--- NOTE | 2016-05-21 17:01 | GENMEDPROG ---
Subjective Note: Patient feels very weak. He has had a decline over the past 2 days and is less able to ambulate. He is extremely thin and emaciated. He lives alone and is responsible for cooking all of his own meals. Notes Reviewed: Yes Events from last night noted and discussed with Clinical Staff Current Medication List: Reviewed Currently: Reports: Diarrhea (Improved Improved), Maxwell PT/OT, Other (Itching around his eyes improved.). Denies: Cough, Wheezing, COELLO, SOB, Ambulating DVT Prophylaxis: Yes - Physical Examination Vital Signs and I&O: Last Vital Signs Temp 97.4 F L 05/21/16 15:30 Pulse 79 05/21/16 16:10 Resp 19 05/21/16 15:30 BP 127/61 05/21/16 15:30 Pulse Ox 97 05/21/16 15:30 Oxygen Pulse Oxygen Saturation 97 O2 Device Room Air Oxygen Flow Rate 2 Fraction of Inspired Oxygen ( FIO2) Intake & Output 05/18/16 05/19/16 05/20/16 05/21/16 23:59 23:59 23:59 23:59 Intake Total 3492 2744 2732 898 Output Total 6263 2635 4325 850 Balance 6792 -472 -0910 48 Patient's weight 39.372 kg 41.232 kg 40.869 kg 39.644 kg General: Alert, Cooperative, No acute distress, Other (Very hard of hearing) HEENT: Mucous membr. moist/pink, Other (Sclera are anicteric, conjunctiva are not injected. Skin around his eye it looks irritated.) Neck: Full range of motion, Normal inspection Lymphatics: negative: Adenopathy Respiratory: Diminished (But clear), Other (wet cough heard. Pt produced clear phlegm.) Cardiovascular: Regular rate and rhythm. negative: LE Edema GI: Normal bowel sounds, Soft, Non tender, Other (Non distended) Extremities/Musculoskeletal: Normal pulses. negative: Swelling, Edema Skin: Warm,Dry and Intact Neurological: Normal speech Psych/Mental Status: Appropriate, Other (Has very unrealistic expectations about his ability to live alone.) - Assessment (1) Diarrhea Acute R19.7 - DIARRHEA, UNSPECIFIED Qualifiers: Diarrhea type: unspecified type Qualified Code(s): R19.7 - Diarrhea, unspecified Comment/Plan: No diarrhea now. Will complete flagyl course. (2) C. difficile colitis Acute A04.7 - ENTEROCOLITIS DUE TO CLOSTRIDIUM DIFFICILE Comment/Plan: Is on Flagyl and diarrhea is resolved. (3) Hyperkalemia Acute E87.5 - HYPERKALEMIA Comment/Plan: Admitted with very high potassium. After Kayexalate therapy it is now low. Will add some low-dose potassium and follow. (4) Numbness and tingling in both hands Acute R20.2 - PARESTHESIA OF SKIN Comment/Plan: Improved with replacement of potassium. (5) Weakness of both lower extremities Acute R29.898 - [facility] SYMPTOMS AND SIGNS INVOLVING THE MUSCULOSKELETAL SYSTEM Comment/Plan: Likely related to hyperkalemia. Improving with PT. Needs skilled therapy. (6) [place] Acute E40 - K[place] Comment/Plan: Severe protein calorie malnutrition likely related to poor diet habits. Patient needs 3 meals a day. - Plan Spoke with daughter at length informed her that her father's problems are severe and serious and that because he is so thin he will have difficulty recovering from his next illness. She has agreed to [facility]. We are pursuing that option. I also spoke at length with nutrition who is continuing to give the patient supplements. Disposition Plan: Likely to skilled facility. Case Care Discussed with: Patient, Family, Nursing Staff, Resource Management, Blemish Remover Education/Counseling Given To: Patient, Family Member Education/Counseling Given Regarding: Diagnosis, Treatment, Prognosis, Follow Up , Disposition Plan Total Time: 45 minutes Critical Care: No Couseling Time (>50% in counseling/coordination): No
[2016-05-21] MEDS: GABAPENTIN 100 MG CAP PO SCH (20:15)
[2016-05-21] MEDS: ACETAMINOPHEN 325 MG/TAB TABLET PO PRN (20:15)
[2016-05-22] MEDS: Albuterol/Ipratropium Neb 3 ML NEB NEB SCH ×4 (01:17→19:43)
[2016-05-22 03:40] VITALS: BMI 14.4
[2016-05-22] MEDS: TRIAMCINOLONE 0.5% CREAM 15 GM TUBE TOP SCH ×3 (05:48→19:55)
[2016-05-22] MEDS: SODIUM CHLORIDE 0.9% 3 ML FLUSH FLUSH SCH ×2 (05:49→18:22)
[2016-05-22] MEDS: METRONIDAZOLE 500 MG TAB PO SCH ×3 (08:52→18:21)
[2016-05-22] MEDS: CLOPIDOGREL 75 MG TAB PO SCH (08:52)
[2016-05-22] MEDS: Aspirin (Orange Enteric Coated) 325 mg tab PO SCH (08:52)
[2016-05-22 09:35] LABS: BLOOD UREA NITROGEN 7 MG/DL (9-20); CALCIUM 7.6 MG/DL (8.4-10.2); CALCULATED OSMOLALITY 276 MOs/Kg (270-290); CHLORIDE 108 mEq/L (98-107); GLUCOSE 87 MG/DL (70-99); SODIUM LEVEL 145 mEq/L (137-146)
[2016-05-22] MEDS ORDERED: KCL 20 MEQ/100 ML IV SCH (11:00)
[2016-05-22] MEDS ORDERED: Magnesium Sulfate 2 gm/D5W 2 GM/50 ML RTU IV ONE (11:00)
--- NOTE | 2016-05-22 11:31 | PCM.DCS92 ---
- Final/Secondary Discharge Diagnosis (1) Diarrhea Acute R19.7 - DIARRHEA, UNSPECIFIED Present on Admission: Yes unspecified type R19.7 - Diarrhea, unspecified Comment: No diarrhea now. Will complete flagyl course. (2) C. difficile colitis Acute A04.7 - ENTEROCOLITIS DUE TO CLOSTRIDIUM DIFFICILE Comment: Is on Flagyl and diarrhea is resolved. (3) Hyperkalemia Acute E87.5 - HYPERKALEMIA Present on Admission: Yes Comment: Admitted with very high potassium. After Kayexalate therapy it is now low. Will add some low-dose potassium and follow. (4) Numbness and tingling in both hands Acute R20.2 - PARESTHESIA OF SKIN Present on Admission: Yes Comment: Improved with replacement of potassium. (5) Weakness of both lower extremities Acute R29.898 - OTH SYMPTOMS AND SIGNS INVOLVING THE MUSCULOSKELETAL SYSTEM Present on Admission: Yes Comment: Likely related to hyperkalemia. Improving with PT. Needs skilled therapy. (6) [place] Acute E40 - KW[place]OR Comment: Severe protein calorie malnutrition likely related to poor diet habits. Patient needs 3 meals a day. Discharge Disposition: Assisted Facility Discharge Condition: Fair Cognitive Discharge Status: Unimpaired Fuctional Discharge Status: Independent, Ambulatory Dysfunction Physician Follow up/Referrals: Neisha Naylor MD [Primary Care Provider] - One Week New Prescriptions: Artificial Tears 2 drops OU Q4H PRN #1 bottle PRN Reason: Eye Dryness Metronidazole [Flagyl] 500 mg PO TIDWM #21 tablet POTASSIUM CHLORIDE Tablet [K-DUR 20 mEq Tablet*] 20 meq PO DAILY@1200 #30 tab.er.prt Triamcinolone [Kenalog, Aristocort] 0 gm TOP TID #1 tube Magnesium Oxide [Mag-Ox] 400 mg PO TIDWM #30 tablet Discharge Home Medication List Clopidogrel Bisulfate [Plavix] 75 mg PO DAILY 11/02/14 [History Confirmed ] Ferrous Sulfate [Feosol] 325 mg PO BID 11/02/14 [History Confirmed 05/16/16] Gabapentin [Neurontin] 200 mg PO HS 11/02/14 [History Confirmed 05/16/16] Propranolol HCl [Propranolol HCl ER] 80 mg PO MOFR 11/02/14 [History Confirmed 05/16/16] Tiotropium [place] [Spiriva] 1 puff INH DAILY 11/02/14 [History Confirmed ] Aspirin (OrangeEnteric Coated) [Ecotrin] 325 mg PO DAILY 11/26/14 [History Confirmed 05/16/16] Artificial Tears 2 drops OU Q4H PRN #1 bottle 05/22/16 [Rx] Magnesium Oxide [Mag-Ox] 400 mg PO TIDWM #30 tablet 05/22/16 [Rx] Metronidazole [Flagyl] 500 mg PO TIDWM #21 tablet 05/22/16 [Rx] POTASSIUM CHLORIDE Tablet [K-DUR 20 mEq Tablet*] 20 meq PO DAILY@1200 #30 tab.er.prt 05/22/16 [Rx] Triamcinolone [Kenalog, Aristocort] 0 gm TOP TID #1 tube 05/22/16 [Rx] New Discharge Medications (Rx) Artificial Tears 2 drops OU Q4H PRN #1 bottle 05/22/16 [Rx] Magnesium Oxide [Mag-Ox] 400 mg PO TIDWM #30 tablet 05/22/16 [Rx] Metronidazole [Flagyl] 500 mg PO TIDWM #21 tablet 05/22/16 [Rx] POTASSIUM CHLORIDE Tablet [K-DUR 20 mEq Tablet*] 20 meq PO DAILY@1200 #30 tab.er.prt 05/22/16 [Rx] Triamcinolone [Kenalog, Aristocort] 0 gm TOP TID #1 tube 05/22/16 [Rx] O2 Device: Room Air Additional Instructions: Patient receiving potassium and magnesium supplementation at this point although he was admitted with hyperkalemia. He will need to have a potassium and magnesium checked next week. Diet at Discharge: As Tolerated, Regular Activity: As Tolerated Call Office For: Worsening Symptoms, Fever over 100.5, Pain Uncontrolled By Meds - DC Summary Notes Hospital Course Note:: Discharge summary on patient named REJI LYNN admitted to [facility] on 05/16/16 by Alice Escobedo MD. Date of discharge is []. 80-year-old male admitted to our facility with hyperkalemia found to be dietary in nature due to poor dietary habits and eating multiple can foods. Please see H& P. He also was found to have C difficile diarrhea and colitis. He was started on antibiotics in the form of Flagyl and recovered nicely. He has been having difficulty with weakness he is unable to ambulate much at all. He was seen in consultation with Physical therapy who recommended intermediate facility placement. He has not had any further diarrhea in several days. He was found to have low potassium once he was put on a low-potassium diet so now he is on a regular potassium diet and receiving some potassium supplementation as well as magnesium supplementation. He will need to have a magnesium and potassium level recheck next week. At this point he has reached maximum benefit of hospitalization is stable for discharge to skilled facility for physical rehabilitation. Total Time: 45 min - Physical Exam Vital Signs: Last Vital Signs Temp 97.6 F 05/22/16 07:58 Pulse 81 05/22/16 10:00 Resp 18 05/22/16 07:58 BP 129/61 05/22/16 07:58 Pulse Ox 94 05/22/16 07:58 Oxygen Pulse Oxygen Saturation 94 O2 Device Room Air Oxygen Flow Rate 2 Fraction of Inspired Oxygen ( FIO2) Constitutional: No apparent distress. negative: Well nourished, Well appearing Oriented to: Time, Person, Place - HEENT Head: Normal (normocephalic, atraumatic.), Other (No cervical lymphadenopathy. No supraclavicular lymphadenopathy. Neck: No palpable mass, supple , trachea midline.) Eye: Normal (pupils equal, reactive to light, and round; EOMI, Sclera white) Oropharynx: Normal (Pharynx: Moist without exudate,Gums-no swelling, No oropharyngeal lesions or erythema, Mucous membranes are dry.) Nose: No Symptoms Reported (septum midline, Nares patent, without discharge or bleeding.) - Respiratory/Cardiovascular Respiratory: Diminished (But clear), Other (wet cough heard. Pt produced clear phlegm.) - GI Auscultation: Normal (normal active sounds) Palpation: Normal (Soft,non distended,nontender. No hepatosplenomegaly.) Tenderness: Non tender (No rebound or guarding) Trimble's Sign: Negative - Musculoskeletal Back: Normal (Non-Tender) Extremities: Normal (Normal tone, DP pulses 2+ bilaterally, No cyanosis or edema bilaterally, FROM bilaterally.) - Integumentary Skin: Normal (Warm dry no rashes) Lymphatics: negative: Adenopathy - Neurologic Memory Impaired: Normal Cerebellar: Unable to Test Mood Description: Normal (Fully oriented. Normal and appropriate affect.), Calm Thought: Coherent Perception: Normal - Other Exam Other Exam Findings: Abnormal Lab Results 05/22/16 08:52 Potassium 2.8 L Chloride 108 H BUN 7 L Creatinine 0.50 L Calcium 7.6 L Magnesium 1.00 L
[2016-05-22] MEDS: MAGNESIUM OXIDE 400 MG TAB PO SCH ×2 (12:21→18:22)
[2016-05-22] MEDS: POTASSIUM CHLORIDE 20 MEQ TAB PO SCH ×2 (12:21→18:22)
[2016-05-22] MEDS: KCl 10 mEq/100 ml Premix (Run) 10 MEQ/100 ML RTU IV SCH ×4 (12:21→18:22)
[2016-05-22] MEDS: NS 1,000 ML IV SCH (12:22)
[2016-05-22] MEDS: ENOXAPARIN 30 MG/0.3 ML PFS SQ SCH (18:22)
[2016-05-22] MEDS: GABAPENTIN 100 MG CAP PO SCH (19:54)
[2016-05-22 20:07] VITALS: BP 142/65; PULSE 85; TEMP 98.1
== END 2016-05-22 21:30 | DRG 371 ==
LOC: ED 16:22 → EDINP 20:26 → PCU 21:50
PROVIDERS: ADMIT Hospitalist; ATTEND Hospitalist
DX: A04.7 Enterocolitis due to Clostridium difficile (principal); E40 Kwashiorkor; E43 Unspecified severe protein-calorie malnutrition; E87.5 Hyperkalemia; J44.9 Chronic obstructive pulmonary disease, unspecified; R64 Cachexia; R20.2 Paresthesia of skin; R29.898 Other symptoms and signs involving the musculoskeletal system; H91.90 Unspecified hearing loss, unspecified ear; I25.10 Atherosclerotic heart disease of native coronary artery without angina pectoris; F17.210 Nicotine dependence, cigarettes, uncomplicated; Z95.5 Presence of coronary angioplasty implant and graft; Z79.82 Long term (current) use of aspirin; Z85.01 Personal history of malignant neoplasm of esophagus; Z79.899 Other long term (current) drug therapy; Z79.02 Long term (current) use of antithrombotics/antiplatelets; Z86.73 Personal history of transient ischemic attack (TIA), and cerebral infarction without residual deficits
CPT/HCPCS: 36415; 70450; 71010; 80048; 80053; 81001; 83605; 83735; 84132; 84484; 85025; 85610; 85730; 87045; 87046; 87427; 87449; 87493; 93005; 94640; 96361; 96365; 96372; 96375; 97161; 99284; G0237; J1650; J3475; J3480; J3490; J7060; J7620